=== PATIENT | female | born 1990 | race African-American/Black ===

== ENCOUNTER → 2020-09-09 | Outpatient (CLI) | payer OTHER ==
--- NOTE | 2020-09-09 11:27 | KCIC ---
MRI of the lumbar spine without contrast 09/09/2020 MEDICAL HISTORY: Low back pain which radiates down the right leg with right leg numbness since early August. TECHNIQUE: Unenhanced T1-weighted and T2-weighted sagittal and axial and inversion recovery sagittal images of the lumbar spine were obtained. FINDINGS: Very mild S-shaped curvature of the thoracolumbar spine is seen. Degenerative signal change s are seen involving the L4-5 and L5-S1 discs. Degenerative signal changes are seen within the marrow surrounding these discs. The conus medullaris is normal morphology, position, and signal characteris tics. The L1-2 disc space is within normal limits. At the L2-3 and L3-4 disc spaces there are minimal generalized disc bulges. Degenerative changes are seen involving the facet joints bilaterally. There is mild ligamentum flavum hypertrophy bilaterally. These findings do not result in narrowing and central spinal canal or neural foraminal stenosis. At the L4-5 disc space there is a mild generalized disc bulge. Degenerative changes are seen involvin g the facet joints bilaterally. There is mild ligamentum flavum hypertrophy bilaterally. These findin gs when combined do not result in significant central spinal canal or neural foraminal stenosis. At the L5-S1 disc space there is a mild generalized disc bulge. Superimposed on this disc bulge is a large right paracentral focal disc herniation. This extrudes superiorly. The disc herniation measures 2.0 x 1.3 x 1.2 cm in craniocaudal, transverse and AP dimensions. It extends to the superior L5 leve l. It results in severe right-sided central spinal canal stenosis. It appears to impinge to some degr ee upon the right S1 nerve root within the right aspect of the central spinal canal. No neural forami nal stenosis is seen. IMPRESSION: The changes of degenerative disc disease are seen involving the mid and lower lumbar spin e. At the L5-S1 disc space a large right paracentral focal disc herniation is seen which extrudes sup eriorly. It results in severe right-sided central spinal canal stenosis and appears to impinge upon t he right S1 nerve root. Electronically signed by: Emmanuel Bolaños MD (09/09/2020 11:24 AM) [id number]
== END ==
LOC: KCIC MRI 09:47
PROVIDERS: ATTEND Family Medicine
DX: M51.17 Intervertebral disc disorders with radiculopathy, lumbosacral region (principal); M47.26 Other spondylosis with radiculopathy, lumbar region; M48.07 Spinal stenosis, lumbosacral region; M89.38 Hypertrophy of bone, other site; M43.8X5 Other specified deforming dorsopathies, thoracolumbar region
CPT/HCPCS: 72148